=== PATIENT | female | born 1945 | race Caucasian/White ===

== ENCOUNTER → 2016-10-30 | Outpatient (CLI) | payer MEDICARE, BC ==
[~2016-10-30] MED LIST: REQUIP2 MG PO
== END ==
LOC: US 15:00 → CT 15:30
DX: R42 Dizziness and giddiness (principal); I65.23 Occlusion and stenosis of bilateral carotid arteries; W19.XXXA Unspecified fall, initial encounter
CPT/HCPCS: 70450; 93880

== ENCOUNTER → 2017-02-12 | Outpatient (CLI) | payer MEDICARE, BC | LOC: HEART 5 14:18 | DX: J44.9 Chronic obstructive pulmonary disease, unspecified (principal); Z87.891 Personal history of nicotine dependence ==

== ENCOUNTER 2020-09-13 09:00 | Emergency (ER) | payer MEDICARE, BC ==
[2020-09-13 10:27] LABS: HEMOGLOBIN 11.1 gm/dl (12.3-15.3); RED BLOOD COUNT 3.99 M/UL (4.00-5.10); WHITE BLOOD COUNT 7.9 K/UL (4.5-11.0)
[2020-09-13] MEDS ORDERED: ELIQUIS5 MG PO (13:21)
[2020-09-13] MEDS ORDERED: PREDNISONE20 MG PO (13:21)
== END 2020-09-13 14:31 | disposition home or self-care (01) ==
LOC: ER1 09:00
PROVIDERS: Physician Assistant
DX: R53.1 Weakness (principal); E27.40 Unspecified adrenocortical insufficiency; I48.91 Unspecified atrial fibrillation; L89.329 Pressure ulcer of left buttock, unspecified stage; L89.319 Pressure ulcer of right buttock, unspecified stage; E11.622 Type 2 diabetes mellitus with other skin ulcer; I87.8 Other specified disorders of veins; I13.0 Hypertensive heart and chronic kidney disease with heart failure and stage 1 through stage 4 chronic kidney disease, or unspecified chronic kidney disease; E11.22 Type 2 diabetes mellitus with diabetic chronic kidney disease; N18.9 Chronic kidney disease, unspecified; I50.9 Heart failure, unspecified; J44.9 Chronic obstructive pulmonary disease, unspecified; Z88.0 Allergy status to penicillin; Z88.5 Allergy status to narcotic agent; Z88.6 Allergy status to analgesic agent; Z79.899 Other long term (current) drug therapy; Z79.82 Long term (current) use of aspirin
CPT/HCPCS: 71045; 80053; 82024; 82533; 82550; 82553; 83874; 84439; 84443; 84484; 85025; 93005; 96374; 99285; J2930

== ENCOUNTER 2020-09-28 14:37 | Inpatient (IN) | payer MEDICARE, BC ==
[~2020-09-28] VITALS: Ht 152.4 cm; Wt 124.0 kg
[~2020-09-28 14:37] MED LIST changes: +ELIQUIS5 MG PO; +PREDNISONE20 MG PO
[2020-09-28 15:43] LABS: HEMOGLOBIN 10.2 gm/dl (12.3-15.3); RED BLOOD COUNT 3.8 M/UL (4.00-5.10); WHITE BLOOD COUNT 14.5 K/UL (4.5-11.0)
[2020-09-28] MEDS ORDERED: TUDORZA PRESS400 MCG INH (17:56)
[2020-09-28] MEDS ORDERED: NORVASC10 MG PO (17:57)
[2020-09-28] MEDS ORDERED: LEXAPRO20 MG PO (17:57)
[2020-09-28] MEDS ORDERED: LEVOTHYROXINE25 MC1 PO (17:58)
[2020-09-28] MEDS ORDERED: LASIX20 MG PO (17:58)
[2020-09-28] MEDS ORDERED: CILOSTAZOL50 MG PO (17:59)
[2020-09-28] MEDS ORDERED: TENORMIN 50 MG50 MG PO (17:59)
[2020-09-28] MEDS ORDERED: ZYRTEC10 M3 PO (18:00)
[2020-09-28] MEDS ORDERED: DAILY MULTIPLE1 EAC1 PO (18:00)
[2020-09-28] MEDS ORDERED: ASPIRIN CHEWABL81 MG PO (18:00)
[2020-09-28] MEDS ORDERED: VENTOLIN HFA 66.7 GM INH (18:05)
[2020-09-28] MEDS ORDERED: SYMBICORT 160-1 INHA INH (18:05)
[2020-09-29 03:03] LABS: HEMOGLOBIN 9.6 gm/dl (12.3-15.3); RED BLOOD COUNT 3.56 M/UL (4.00-5.10); WHITE BLOOD COUNT 12.7 K/UL (4.5-11.0)
[2020-09-30 02:22] LABS: HEMOGLOBIN 9.3 gm/dl (12.3-15.3); RED BLOOD COUNT 3.43 M/UL (4.00-5.10); WHITE BLOOD COUNT 12.9 K/UL (4.5-11.0)
[2020-10-01 02:42] LABS: HEMOGLOBIN 9.3 gm/dl (12.3-15.3); RED BLOOD COUNT 3.59 M/UL (4.00-5.10); WHITE BLOOD COUNT 11.7 K/UL (4.5-11.0)
[2020-10-02 02:20] LABS: HEMOGLOBIN 9.7 gm/dl (12.3-15.3); RED BLOOD COUNT 3.59 M/UL (4.00-5.10); WHITE BLOOD COUNT 12.4 K/UL (4.5-11.0)
[2020-10-03 03:00] LABS: HEMOGLOBIN 9.7 gm/dl (12.3-15.3); RED BLOOD COUNT 3.55 M/UL (4.00-5.10); WHITE BLOOD COUNT 13.9 K/UL (4.5-11.0)
[2020-10-04 03:39] LABS: HEMOGLOBIN 9.6 gm/dl (12.3-15.3); RED BLOOD COUNT 3.53 M/UL (4.00-5.10); WHITE BLOOD COUNT 12.1 K/UL (4.5-11.0)
[2020-10-05 02:33] LABS: HEMOGLOBIN 10.1 gm/dl (12.3-15.3); RED BLOOD COUNT 3.53 M/UL (4.00-5.10); WHITE BLOOD COUNT 12.6 K/UL (4.5-11.0)
[2020-10-05] MEDS ORDERED: BUMETANIDE1 MG PO (11:48)
[2020-10-05] MEDS ORDERED: ELIQUIS 5 MG TAB5 MG PO (11:48)
--- NOTE | 2020-10-05 15:49 | NUR ---
FAMILY FRIEND STATES NO ONE IS ABLE TO TAKE OLD BED DOWN FOR HOSPITAL BED TO BE SET UP TODAY, IT CAN BE DONE IN AM. DIGITAL STRATEGY DIRECTOR STATES PT CANNOT BE DISCHARGED UNTIL HOSPITAL BED SET UP CAUSE PT IS UNABLE TO SLEEP WITH HEAD NOT ELEVATED R/T BREATHING AND UNABLE TO GET OUT OF REGULAR BED. MD NOTIFIED AND STATES TO D/C DISCHARGE
[2020-10-06] MEDS ORDERED: LOPRESSOR 25 MG25 MG PO (11:03)
[2020-10-06] MEDS ORDERED: K-DUR TAB 10 M10 MEQ PO (11:16)
[2020-10-06] MEDS ORDERED: DOXYCYCLINE HY100 MG PO (11:19)
== END 2020-10-06 18:27 | disposition home or self-care (01) | DRG 291 ==
LOC: ER1 14:37 → M/S 16:49 → ZEROF 16:49 → PROG CARE 16:49 → M/S 20:35 → PROG CARE 09-29 16:03 → M/S 10-05 20:10
PROVIDERS: Family Medicine; Internal Medicine; ADMIT Internal Medicine
PROC: B24BZZZ Ultrasonography of Heart with Aorta (ICD-10-PCS; principal; 2020-09-29)
DX: I13.0 Hypertensive heart and chronic kidney disease with heart failure and stage 1 through stage 4 chronic kidney disease, or unspecified chronic kidney disease (principal); J96.21 Acute and chronic respiratory failure with hypoxia; I50.33 Acute on chronic diastolic (congestive) heart failure; Z68.43 Body mass index [BMI] 50.0-59.9, adult; I48.20 Chronic atrial fibrillation, unspecified; N17.9 Acute kidney failure, unspecified; E66.2 Morbid (severe) obesity with alveolar hypoventilation; I27.81 Cor pulmonale (chronic); N18.30 Chronic kidney disease, stage 3 unspecified; J44.9 Chronic obstructive pulmonary disease, unspecified; I25.10 Atherosclerotic heart disease of native coronary artery without angina pectoris; E03.9 Hypothyroidism, unspecified; D64.9 Anemia, unspecified; E87.6 Hypokalemia; Z20.822 Contact with and (suspected) exposure to COVID-19; R77.8 Other specified abnormalities of plasma proteins; Z82.49 Family history of ischemic heart disease and other diseases of the circulatory system; Z90.49 Acquired absence of other specified parts of digestive tract; Z85.42 Personal history of malignant neoplasm of other parts of uterus; Z90.710 Acquired absence of both cervix and uterus; Z80.1 Family history of malignant neoplasm of trachea, bronchus and lung; Z99.81 Dependence on supplemental oxygen; Z87.891 Personal history of nicotine dependence; Z88.5 Allergy status to narcotic agent; Z88.0 Allergy status to penicillin; Z88.8 Allergy status to other drugs, medicaments and biological substances; Z79.82 Long term (current) use of aspirin; Z79.890 Hormone replacement therapy; Z79.899 Other long term (current) drug therapy; G25.81 Restless legs syndrome; F32.9 Major depressive disorder, single episode, unspecified; L89.322 Pressure ulcer of left buttock, stage 2
CPT/HCPCS: ECHO; 36415; 36600; 71045; 80048; 80053; 82550; 82553; 82803; 82962; 83735; 83874; 83880; 84132; 84484; 85025; 85610; 85730; 87635; 93005; 93306; 94640; 94660; 94664; 94760; 96365; 96375; 96376; 97110-GP-CQ; 97116-GP-CQ; 97162; 97530-GP-CQ; 99285; A6212; J1120; J1205; J1644; J1650; J1940; U0002

== ENCOUNTER 2020-10-17 11:00 | Inpatient (IN) | payer MEDICARE, BC ==
[~2020-10-17] VITALS: Ht 152.4 cm; Wt 123.0 kg
[~2020-10-17 11:00] MED LIST changes: +ASPIRIN CHEWABL81 MG PO; +BUMETANIDE1 MG PO; +CILOSTAZOL50 MG PO; +DAILY MULTIPLE1 EAC1 PO; +DOXYCYCLINE HY100 MG PO; +ELIQUIS 5 MG TAB5 MG PO; +K-DUR TAB 10 M10 MEQ PO; +LASIX20 MG PO; +LEVOTHYROXINE25 MC1 PO; +LEXAPRO20 MG PO; +LOPRESSOR 25 MG25 MG PO; +NORVASC10 MG PO; +SYMBICORT 160-1 INHA INH; +TENORMIN 50 MG50 MG PO; +TUDORZA PRESS400 MCG INH; +VENTOLIN HFA 66.7 GM INH; +ZYRTEC10 M3 PO
[2020-10-17 11:29] LABS: HEMOGLOBIN 8.9 gm/dl (12.3-15.3)
[2020-10-17 11:33] LABS: RED BLOOD COUNT 3.3 M/UL (4.00-5.10); WHITE BLOOD COUNT 15.7 K/UL (4.5-11.0)
[2020-10-17 11:51] LABS: BUN/CREATININE RATIO 23 (0-10)
[2020-10-18 03:54] LABS: HEMOGLOBIN 8.7 gm/dl (12.3-15.3); RED BLOOD COUNT 3.23 M/UL (4.00-5.10); WHITE BLOOD COUNT 13.2 K/UL (4.5-11.0)
[2020-10-18 04:23] LABS: BUN/CREATININE RATIO 21 (0-10)
[2020-10-19 04:02] LABS: HEMOGLOBIN 8.1 gm/dl (12.3-15.3); RED BLOOD COUNT 2.97 M/UL (4.00-5.10); WHITE BLOOD COUNT 12.3 K/UL (4.5-11.0)
[2020-10-20 04:18] LABS: HEMOGLOBIN 7.7 gm/dl (12.3-15.3); RED BLOOD COUNT 2.86 M/UL (4.00-5.10); WHITE BLOOD COUNT 12.3 K/UL (4.5-11.0)
[2020-10-22 04:24] LABS: HEMOGLOBIN 7.4 gm/dl (12.3-15.3); RED BLOOD COUNT 2.76 M/UL (4.00-5.10); WHITE BLOOD COUNT 9.8 K/UL (4.5-11.0)
[2020-10-24 05:58] LABS: HEMOGLOBIN 7.5 gm/dl (12.3-15.3); RED BLOOD COUNT 2.78 M/UL (4.00-5.10); WHITE BLOOD COUNT 11.5 K/UL (4.5-11.0)
[2020-10-26 03:29] LABS: HEMOGLOBIN 7.5 gm/dl (12.3-15.3); RED BLOOD COUNT 2.77 M/UL (4.00-5.10); WHITE BLOOD COUNT 12.4 K/UL (4.5-11.0)
[2020-10-27 03:16] LABS: HEMOGLOBIN 7.3 gm/dl (12.3-15.3); RED BLOOD COUNT 2.67 M/UL (4.00-5.10); WHITE BLOOD COUNT 11.1 K/UL (4.5-11.0)
[2020-10-27] MEDS ORDERED: LISINOPRIL2.5 MG PO (18:24)
[2020-10-28 09:00] LABS: HEMOGLOBIN 7.5 gm/dl (12.3-15.3); RED BLOOD COUNT 2.72 M/UL (4.00-5.10); WHITE BLOOD COUNT 11.5 K/UL (4.5-11.0)
[2020-11-01] MEDS ORDERED: K-DUR TAB 10 M10 MEQ PO (10:54)
== END 2020-11-01 13:49 | disposition home health service (06) | DRG 291 ==
LOC: ER1 11:00 → MED SURG 4 15:05 → CDU 15:05 → MED SURG 4 18:15
PROVIDERS: Internal Medicine; Internal Medicine Infectious Disease; Physician Assistant; Student in an Organized Health Care Education/Training Program; ADMIT Internal Medicine
DX: I50.810 Right heart failure, unspecified (principal); J96.21 Acute and chronic respiratory failure with hypoxia; J44.1 Chronic obstructive pulmonary disease with (acute) exacerbation; E66.2 Morbid (severe) obesity with alveolar hypoventilation; Z20.822 Contact with and (suspected) exposure to COVID-19; Z68.43 Body mass index [BMI] 50.0-59.9, adult; N17.9 Acute kidney failure, unspecified; I48.20 Chronic atrial fibrillation, unspecified; E03.9 Hypothyroidism, unspecified; I27.29 Other secondary pulmonary hypertension; D50.9 Iron deficiency anemia, unspecified; E87.6 Hypokalemia; L89.322 Pressure ulcer of left buttock, stage 2; I51.7 Cardiomegaly; E83.42 Hypomagnesemia; E87.70 Fluid overload, unspecified; I27.81 Cor pulmonale (chronic); Z87.891 Personal history of nicotine dependence; Z85.42 Personal history of malignant neoplasm of other parts of uterus; Z79.82 Long term (current) use of aspirin; Z79.890 Hormone replacement therapy; Z79.01 Long term (current) use of anticoagulants; Z79.899 Other long term (current) drug therapy; Z99.81 Dependence on supplemental oxygen; Z88.6 Allergy status to analgesic agent; Z88.5 Allergy status to narcotic agent; Z88.0 Allergy status to penicillin; Z82.49 Family history of ischemic heart disease and other diseases of the circulatory system; Z80.1 Family history of malignant neoplasm of trachea, bronchus and lung; Z90.49 Acquired absence of other specified parts of digestive tract
CPT/HCPCS: 0240U; 36415; 36600; 71045; 71046; 80048; 80053; 80202; 81001; 82550; 82553; 82607; 82728; 82746; 82803; 83540; 83550; 83605; 83735; 83874; 83880; 84100; 84132; 84443; 84484; 85025; 85027; 85379; 85610; 85730; 87040; 87278; 87635; 93005; 94640; 94660; 94664; 94760; 96365; 96366; 96368; 96375; 97116; 97116-GP-CQ; 97162; 97166; 97530; 97530-GP-CQ; 97535; 99285; J0456; J0692; J0696; J1120; J1205; J1756; J1940; J1956; J3370; J3475; J7030; J7050; J7070; P9047

== ENCOUNTER → 2020-11-02 | Outpatient (CLI) | payer MEDICARE, BC ==
[~2020-11-02] MED LIST changes: +AMLODIPINE BESY10 MG PO; +FUROSEMIDE20 MG PO; +GLIMEPIRIDE1 MG PO; +LISINOPRIL2.5 MG PO; +PREDNISONE 20 M20 MG PO; +ZAROXOLYN/DIULO5 MG PO
== END ==
LOC: LBRF 09:18
PROVIDERS: Family Medicine
DX: E87.6 Hypokalemia (principal); E83.42 Hypomagnesemia
CPT/HCPCS: 80048; 83735

== ENCOUNTER 2021-01-03 16:06 | Inpatient (IN) | payer MEDICARE, BC ==
[~2021-01-03] VITALS: Ht 152.4 cm; Wt 132.6 kg
[~2021-01-03 16:06] MED LIST changes: -AMLODIPINE BESY10 MG PO; -FUROSEMIDE20 MG PO; -GLIMEPIRIDE1 MG PO; -PREDNISONE 20 M20 MG PO; -ZAROXOLYN/DIULO5 MG PO
[2021-01-03 17:17] LABS: HEMOGLOBIN 9.5 gm/dl (12.3-15.3); RED BLOOD COUNT 3.72 M/UL (4.00-5.10); WHITE BLOOD COUNT 10.8 K/UL (4.5-11.0)
[2021-01-03] MEDS ORDERED: FUROSEMIDE20 MG PO (19:28)
[2021-01-03] MEDS ORDERED: TENORMIN 50 MG50 MG PO (19:29)
[2021-01-03] MEDS ORDERED: AMLODIPINE BESY10 MG PO (19:44)
[2021-01-03] MEDS ORDERED: GLIMEPIRIDE1 MG PO (19:45)
[2021-01-03] MEDS ORDERED: ELIQUIS5 MG PO (19:58)
[2021-01-04 05:41] LABS: HEMOGLOBIN 8.7 gm/dl (12.3-15.3); RED BLOOD COUNT 3.39 M/UL (4.00-5.10); WHITE BLOOD COUNT 9.9 K/UL (4.5-11.0)
[2021-01-04 06:09] LABS: BUN/CREATININE RATIO 17 (0-10)
[2021-01-05 04:54] LABS: HEMOGLOBIN 8.5 gm/dl (12.3-15.3); RED BLOOD COUNT 3.39 M/UL (4.00-5.10); WHITE BLOOD COUNT 8.3 K/UL (4.5-11.0)
[2021-01-06 02:44] LABS: HEMOGLOBIN 8.3 gm/dl (12.3-15.3); RED BLOOD COUNT 3.32 M/UL (4.00-5.10)
[2021-01-06 02:46] LABS: WHITE BLOOD COUNT 13.3 K/UL (4.5-11.0)
[2021-01-07 03:02] LABS: RED BLOOD COUNT 3.29 M/UL (4.00-5.10); WHITE BLOOD COUNT 10.6 K/UL (4.5-11.0)
[2021-01-07] MEDS ORDERED: BUMETANIDE1 MG PO (11:37)
[2021-01-07] MEDS ORDERED: ZAROXOLYN/DIULO5 MG PO (11:37)
[2021-01-08 09:36] LABS: RED BLOOD COUNT 3.59 M/UL (4.00-5.10); WHITE BLOOD COUNT 9.7 K/UL (4.5-11.0)
[2021-01-10 05:26] LABS: HEMOGLOBIN 9.1 gm/dl (12.3-15.3); RED BLOOD COUNT 3.68 M/UL (4.00-5.10); WHITE BLOOD COUNT 10.2 K/UL (4.5-11.0)
[2021-01-12 02:29] LABS: HEMOGLOBIN 8.5 gm/dl (12.3-15.3); RED BLOOD COUNT 3.47 M/UL (4.00-5.10); WHITE BLOOD COUNT 9.3 K/UL (4.5-11.0)
[2021-01-17 03:07] LABS: BUN/CREATININE RATIO 59 (0-10)
[2021-01-18 03:16] LABS: HEMOGLOBIN 8.9 gm/dl (12.3-15.3); RED BLOOD COUNT 3.61 M/UL (4.00-5.10)
[2021-01-20] MEDS ORDERED: PREDNISONE 20 M20 MG PO (11:17)
== END 2021-01-20 12:56 | disposition home or self-care (01) | DRG 291 ==
LOC: ER1 16:06 → CDU 19:05 → PROG CARE 19:05
PROVIDERS: Internal Medicine; Internal Medicine Infectious Disease; Physician Assistant Medical; ADMIT Internal Medicine
DX: I11.0 Hypertensive heart disease with heart failure (principal); J96.21 Acute and chronic respiratory failure with hypoxia; J44.1 Chronic obstructive pulmonary disease with (acute) exacerbation; E66.2 Morbid (severe) obesity with alveolar hypoventilation; E87.1 Hypo-osmolality and hyponatremia; Z68.43 Body mass index [BMI] 50.0-59.9, adult; Z20.822 Contact with and (suspected) exposure to COVID-19; I50.33 Acute on chronic diastolic (congestive) heart failure; R04.0 Epistaxis; E03.9 Hypothyroidism, unspecified; R53.81 Other malaise; F41.9 Anxiety disorder, unspecified; E87.6 Hypokalemia; I48.0 Paroxysmal atrial fibrillation; I73.9 Peripheral vascular disease, unspecified; E11.9 Type 2 diabetes mellitus without complications; Z79.4 Long term (current) use of insulin; Z86.16 Personal history of COVID-19; Z85.42 Personal history of malignant neoplasm of other parts of uterus; Z90.49 Acquired absence of other specified parts of digestive tract; Z79.01 Long term (current) use of anticoagulants; Z79.82 Long term (current) use of aspirin; Z87.01 Personal history of pneumonia (recurrent); Z99.81 Dependence on supplemental oxygen; Z98.51 Tubal ligation status; Z88.6 Allergy status to analgesic agent; Z88.5 Allergy status to narcotic agent; Z88.8 Allergy status to other drugs, medicaments and biological substances; Z87.891 Personal history of nicotine dependence; Z82.49 Family history of ischemic heart disease and other diseases of the circulatory system; Z80.1 Family history of malignant neoplasm of trachea, bronchus and lung
CPT/HCPCS: 36415; 36600; 71045; 71046; 71250; 80048; 80053; 80202; 82550; 82553; 82803; 82962; 83605; 83735; 83874; 83880; 84100; 84132; 84484; 85025; 85027; 85379; 85610; 86140; 87040; 87081; 93005; 93970; 94640; 94664; 94760; 96374; 96375; 97116; 97116-GP-CQ; 97162; 97530; 97530-GP-CQ; 99285; J0696; J1205; J1940; J2185; J2920; J3370; J3475; J7030; J7070; U0002

== ENCOUNTER 2021-04-08 09:59 | Inpatient (IN) | payer MEDICARE, BC ==
[~2021-04-08] VITALS: Ht 152.4 cm; Wt 127.1 kg
[~2021-04-08 09:59] MED LIST changes: +AMLODIPINE BESY10 MG PO; -ASPIRIN CHEWABL81 MG PO; +FUROSEMIDE20 MG PO; +GLIMEPIRIDE1 MG PO; +PREDNISONE 20 M20 MG PO; -REQUIP2 MG PO; +ZAROXOLYN/DIULO5 MG PO; -ZYRTEC10 M3 PO
[2021-04-08 10:27] LABS: RED BLOOD COUNT 3.96 M/UL (4.00-5.10); WHITE BLOOD COUNT 8.4 K/UL (4.5-11.0)
[2021-04-08 10:58] LABS: BUN/CREATININE RATIO 27 (0-10)
[2021-04-08] MEDS ORDERED: COZAAR 25MG TAB25 MG PO (12:28)
[2021-04-08] MEDS ORDERED: KLOR-CON 1010 MEQ PO (12:39)
[2021-04-08] MEDS ORDERED: SYMBICORT 160-1 INHA INH (12:39)
[2021-04-08] MEDS ORDERED: LOPRESSOR 25 MG25 MG PO (12:40)
[2021-04-08] MEDS ORDERED: TYLENOL EXTRA500 MG PO (13:20)
[2021-04-08] MEDS ORDERED: METAMUCIL POWD822 GM PO (13:23)
[2021-04-08] MEDS ORDERED: ROPINIROLE HCL2 MG PO (14:06)
[2021-04-08] MEDS ORDERED: ASPIRIN EC81 MG PO (18:00)
[2021-04-08] MEDS ORDERED: ZYRTEC10 MG PO (18:00)
[2021-04-09 07:48] LABS: HEMOGLOBIN 9.8 gm/dl (12.3-15.3); RED BLOOD COUNT 4.2 M/UL (4.00-5.10); WHITE BLOOD COUNT 8.2 K/UL (4.5-11.0)
[2021-04-11 06:21] LABS: HEMOGLOBIN 8.9 gm/dl (12.3-15.3); RED BLOOD COUNT 3.79 M/UL (4.00-5.10)
[2021-04-11 06:34] LABS: WHITE BLOOD COUNT 10.7 K/UL (4.5-11.0)
[2021-04-12 07:03] LABS: HEMOGLOBIN 9.4 gm/dl (12.3-15.3); RED BLOOD COUNT 3.76 M/UL (4.00-5.10); WHITE BLOOD COUNT 8.6 K/UL (4.5-11.0)
[2021-04-13 04:30] LABS: HEMOGLOBIN 8.9 gm/dl (12.3-15.3); RED BLOOD COUNT 3.69 M/UL (4.00-5.10); WHITE BLOOD COUNT 8.7 K/UL (4.5-11.0)
== END 2021-04-14 14:39 | disposition home or self-care (01) | DRG 291 ==
LOC: ER1 09:59 → CDU 12:13 → M/S 12:13
PROVIDERS: Emergency Medicine; Internal Medicine; Physician Assistant; Physician Assistant Medical; ADMIT Internal Medicine Infectious Disease
DX: I13.0 Hypertensive heart and chronic kidney disease with heart failure and stage 1 through stage 4 chronic kidney disease, or unspecified chronic kidney disease (principal); I50.33 Acute on chronic diastolic (congestive) heart failure; I47.2 Ventricular tachycardia; E66.2 Morbid (severe) obesity with alveolar hypoventilation; J96.11 Chronic respiratory failure with hypoxia; Z20.822 Contact with and (suspected) exposure to COVID-19; N18.30 Chronic kidney disease, stage 3 unspecified; I48.0 Paroxysmal atrial fibrillation; J44.9 Chronic obstructive pulmonary disease, unspecified; D63.1 Anemia in chronic kidney disease; E03.9 Hypothyroidism, unspecified; I73.9 Peripheral vascular disease, unspecified; F41.9 Anxiety disorder, unspecified; Z86.16 Personal history of COVID-19; Z98.51 Tubal ligation status; Z90.710 Acquired absence of both cervix and uterus; Z90.49 Acquired absence of other specified parts of digestive tract; Z90.89 Acquired absence of other organs; Z98.890 Other specified postprocedural states; Z85.42 Personal history of malignant neoplasm of other parts of uterus; Z88.0 Allergy status to penicillin; Z88.8 Allergy status to other drugs, medicaments and biological substances; Z88.5 Allergy status to narcotic agent; Z79.82 Long term (current) use of aspirin; Z79.890 Hormone replacement therapy; Z79.899 Other long term (current) drug therapy; Z82.49 Family history of ischemic heart disease and other diseases of the circulatory system; Z80.1 Family history of malignant neoplasm of trachea, bronchus and lung
CPT/HCPCS: 36415; 51702; 71045; 80048; 80053; 81001; 82550; 82553; 82803; 83605; 83735; 83874; 83880; 84484; 85025; 85027; 87040; 93005; 94640; 94664; 94760; 96374; 96375; 97116-GP-CQ; 97162; 97530; 97530-GP-CQ; 99285; J0696; J1100; J1205; J1650; J1940; P9047; U0002

== ENCOUNTER 2021-07-19 12:44 | Inpatient (IN) | payer MEDICARE, BC ==
[~2021-07-19] VITALS: Ht 152.4 cm; Wt 129.4 kg
[~2021-07-19 12:44] MED LIST changes: +ASPIRIN EC81 MG PO; +COZAAR 25MG TAB25 MG PO; +KLOR-CON 1010 MEQ PO; -LEVOTHYROXINE25 MC1 PO; +LEVOTHYROXINE50 MCG PO; +METAMUCIL POWD822 GM PO; +ROPINIROLE HCL2 MG PO; +TYLENOL EXTRA500 MG PO; +ZYRTEC10 MG PO
[2021-07-19 13:18] LABS: HEMOGLOBIN 11.6 gm/dl (12.3-15.3); RED BLOOD COUNT 4.38 M/UL (4.00-5.10); WHITE BLOOD COUNT 7.7 K/UL (4.5-11.0)
[2021-07-19 13:57] LABS: BORDETELLA PARAPERTUSSIS Not Detected (Not Detectd); BORDETELLA PERTUSSIS Not Detected (Not Detectd); CHLAMYDIA PNEUMONIAE Not Detected (Not Detectd); CORONAVIRUS HKU1 Not Detected (Not Detectd); CORONAVIRUS NL63 Not Detected (Not Detectd); CORONAVIRUS OC43 Not Detected (Not Detectd); CORONOAVIRUS 229E Not Detected (Not Detectd); HUMAN METAPNEUMOVIRUS Not Detected (Not Detectd); HUMAN RHINOVIRUS/ENTEROVIRUS Not Detected (Not Detectd); INFLUENZA A Not Detected (Not Detectd); INFLUENZA B Not Detected (Not Detectd); MYCOPLASMA PNEUMONIAE Not Detected (Not Detectd); PARAINFLUENZA VIRUS 1 Not Detected (Not Detectd); PARAINFLUENZA VIRUS 2 Not Detected (Not Detectd); PARAINFLUENZA VIRUS 3 Not Detected (Not Detectd); PARAINFLUENZA VIRUS 4 Not Detected (Not Detectd); RESPIRATORY SYNCYTIAL VIRUS Not Detected (Not Detectd)
[2021-07-19 15:43] LABS: SARS-CoV-2 NOT DETECTED (Not Detectd)
[2021-07-19] MEDS ORDERED: BUMETANIDE1 MG PO (16:31)
[2021-07-19] MEDS ORDERED: AMLODIPINE BESY10 MG PO (16:32)
[2021-07-19] MEDS ORDERED: CILOSTAZOL50 MG PO (16:32)
[2021-07-19] MEDS ORDERED: ELIQUIS5 MG PO (16:32)
[2021-07-20 06:47] LABS: HEMOGLOBIN 10.8 gm/dl (12.3-15.3); RED BLOOD COUNT 4.19 M/UL (4.00-5.10)
[2021-07-20 06:50] LABS: WHITE BLOOD COUNT 4.1 K/UL (4.5-11.0)
[2021-07-23 07:47] LABS: HEMOGLOBIN 9.7 gm/dl (12.3-15.3); RED BLOOD COUNT 3.77 M/UL (4.00-5.10); WHITE BLOOD COUNT 8.9 K/UL (4.5-11.0)
[2021-07-24 06:54] LABS: HEMOGLOBIN 10.1 gm/dl (12.3-15.3); RED BLOOD COUNT 3.87 M/UL (4.00-5.10)
[2021-07-25 06:19] LABS: HEMOGLOBIN 9.4 gm/dl (12.3-15.3); RED BLOOD COUNT 3.6 M/UL (4.00-5.10); WHITE BLOOD COUNT 6.4 K/UL (4.5-11.0)
[2021-07-26 07:08] LABS: HEMOGLOBIN 9.9 gm/dl (12.3-15.3); RED BLOOD COUNT 3.82 M/UL (4.00-5.10); WHITE BLOOD COUNT 6.1 K/UL (4.5-11.0)
[2021-07-27 04:09] LABS: HEMOGLOBIN 9.5 gm/dl (12.3-15.3); RED BLOOD COUNT 3.62 M/UL (4.00-5.10); WHITE BLOOD COUNT 5.5 K/UL (4.5-11.0)
[2021-07-28 06:01] LABS: HEMOGLOBIN 9.8 gm/dl (12.3-15.3); RED BLOOD COUNT 3.8 M/UL (4.00-5.10); WHITE BLOOD COUNT 6.2 K/UL (4.5-11.0)
[2021-07-29 07:02] LABS: HEMOGLOBIN 9.6 gm/dl (12.3-15.3); RED BLOOD COUNT 3.64 M/UL (4.00-5.10); WHITE BLOOD COUNT 7.2 K/UL (4.5-11.0)
[2021-07-30 07:42] LABS: HEMOGLOBIN 9.4 gm/dl (12.3-15.3); RED BLOOD COUNT 3.74 M/UL (4.00-5.10)
[2021-07-31 08:13] LABS: HEMOGLOBIN 9.9 gm/dl (12.3-15.3); RED BLOOD COUNT 3.9 M/UL (4.00-5.10); WHITE BLOOD COUNT 7.1 K/UL (4.5-11.0)
[2021-08-01 06:49] LABS: HEMOGLOBIN 10.2 gm/dl (12.3-15.3); RED BLOOD COUNT 3.91 M/UL (4.00-5.10)
[2021-08-01 06:50] LABS: WHITE BLOOD COUNT 9.3 K/UL (4.5-11.0)
[2021-08-01] MEDS ORDERED: DIGOXIN250 MCG PO (10:17)
[2021-08-01] MEDS ORDERED: LEVOFLOXACIN500 MG PO (10:32)
[2021-08-02 06:57] LABS: HEMOGLOBIN 9.6 gm/dl (12.3-15.3); RED BLOOD COUNT 3.79 M/UL (4.00-5.10); WHITE BLOOD COUNT 9.2 K/UL (4.5-11.0)
--- NOTE | 2021-08-03 02:54 | NUR ---
patient pulse ox cord was paced on her ear and is currently reading 99% on 5l with cpap from home. turned patient down to 4 l with cpap from home and patient is currently sating 98%. patient has no complaints of soa or any other complaints at this time. call light in reach bed in low position and siderails elevated.
[2021-08-04] MEDS ORDERED: BUMETANIDE1 MG PO (09:30)
[2021-08-04] MEDS ORDERED: IPRAT-ALBUT 0.5-3 ML NEB (09:30)
[2021-08-04] MEDS ORDERED: KLOR-CON 1010 MEQ PO (09:30)
[2021-08-04] MEDS ORDERED: LOPRESSOR 50 MG50 MG PO (09:30)
[2021-08-04] MEDS ORDERED: DIGOXIN125 MCG PO (09:30)
== END 2021-08-04 13:33 | DRG 291 ==
LOC: ER1 12:44 → CDU 15:45 → M/S 15:45
PROVIDERS: Internal Medicine; Internal Medicine Cardiovascular Disease; Physician Assistant; Physician Assistant Medical; ADMIT Internal Medicine
DX: I13.0 Hypertensive heart and chronic kidney disease with heart failure and stage 1 through stage 4 chronic kidney disease, or unspecified chronic kidney disease (principal); I50.33 Acute on chronic diastolic (congestive) heart failure; J96.21 Acute and chronic respiratory failure with hypoxia; J18.9 Pneumonia, unspecified organism; N17.9 Acute kidney failure, unspecified; J44.0 Chronic obstructive pulmonary disease with (acute) lower respiratory infection; Z68.44 Body mass index [BMI] 60.0-69.9, adult; Z20.822 Contact with and (suspected) exposure to COVID-19; I48.0 Paroxysmal atrial fibrillation; N18.30 Chronic kidney disease, stage 3 unspecified; D64.9 Anemia, unspecified; G47.33 Obstructive sleep apnea (adult) (pediatric); I27.20 Pulmonary hypertension, unspecified; I27.81 Cor pulmonale (chronic); E66.01 Morbid (severe) obesity due to excess calories; E11.649 Type 2 diabetes mellitus with hypoglycemia without coma; E87.6 Hypokalemia; E83.42 Hypomagnesemia; R53.81 Other malaise; E03.9 Hypothyroidism, unspecified; I50.810 Right heart failure, unspecified; F41.9 Anxiety disorder, unspecified; Z99.81 Dependence on supplemental oxygen; Z79.01 Long term (current) use of anticoagulants; Z79.899 Other long term (current) drug therapy; Z85.42 Personal history of malignant neoplasm of other parts of uterus; Z90.49 Acquired absence of other specified parts of digestive tract; Z98.51 Tubal ligation status; Z90.710 Acquired absence of both cervix and uterus; Z90.89 Acquired absence of other organs; Z88.0 Allergy status to penicillin; Z88.5 Allergy status to narcotic agent; Z88.8 Allergy status to other drugs, medicaments and biological substances; Z79.82 Long term (current) use of aspirin; Z82.49 Family history of ischemic heart disease and other diseases of the circulatory system; Z80.1 Family history of malignant neoplasm of trachea, bronchus and lung; Z98.890 Other specified postprocedural states; Z87.891 Personal history of nicotine dependence
CPT/HCPCS: ECHO; 36415; 36600; 51702; 71045; 71046; 80048; 80053; 80162; 82550; 82553; 82803; 82962; 83036; 83605; 83735; 83874; 83880; 84132; 84484; 85025; 85027; 85610; 87040; 87633; 93005; 93306; 93971; 94640; 94660; 94664; 94760; 97110; 97161; 97166; 97530-GP-CQ; 97535; 99285; J1650; J1940; J2930; J3475; Q9957; U0002

== ENCOUNTER 2021-08-23 14:53 | Inpatient (IN) | payer MEDICARE, BC ==
[~2021-08-23] VITALS: Ht 152.4 cm; Wt 109.6 kg
[~2021-08-23 14:53] MED LIST changes: +DIGOXIN125 MCG PO; +DIGOXIN250 MCG PO; +IPRAT-ALBUT 0.5-3 ML NEB; +LEVOFLOXACIN500 MG PO; +LOPRESSOR 50 MG50 MG PO
[2021-08-23 16:04] LABS: RED BLOOD COUNT 4.45 M/UL (4.00-5.10); WHITE BLOOD COUNT 9.3 K/UL (4.5-11.0)
[2021-08-23 16:37] LABS: BUN/CREATININE RATIO 29 (0-10)
[2021-08-24 03:16] LABS: HEMOGLOBIN 11.8 gm/dl (12.3-15.3); RED BLOOD COUNT 4.41 M/UL (4.00-5.10); WHITE BLOOD COUNT 10.6 K/UL (4.5-11.0)
[2021-08-24 16:07] LABS: ACINETOBACTER BAUMANNII Not Detected (Negative); CANDIDA ALBICANS Not Detected (Negative); CANDIDA KRUSEI Not Detected (Negative); CANDIDA TROPICALIS Not Detected (Negative); ENTEROCOCCUS Not Detected (Negative); ESCHERICHIA COLI Not Detected (Negative); HAEMOPHILUS INFLUENZAE Not Detected (Negative); KLEBSIELLA OXYTOCA Not Detected (Negative); KLEBSIELLA PNEUMONIAE Not Detected (Negative); KPC-CARBAPENEM-RESISTANCE GENE Not Detected (Negative); PROTEUS Not Detected (Negative); PSEUDOMONAS AERUGINOSA Not Detected (Negative); SERRATIA MARCESANS Not Detected (Negative); STAPHYLOCOCCUS AUREUS Not Detected (Negative); STREP AGALACTIAE (GROUP B) Not Detected (Negative); STREP PYOGENES (GROUP A) Not Detected (Negative); STREPTOCOCCUS Not Detected (Negative); vanA/B (VANCOMYCIN RESIST GENE Not Detected (Negative)
[2021-08-24 18:18] LABS: STAPHYLOCOCCUS DETECTED (Negative); mecA (METHICILLIN RESIST GENE DETECTED (Negative)
[2021-08-29] MEDS ORDERED: SYMBICORT 160-1 INHA INH (11:20)
[2021-08-29] MEDS ORDERED: ACETAMINOPHEN325 MG PO (11:20)
[2021-08-29] MEDS ORDERED: LOPRESSOR 25 MG25 MG PO (11:20)
[2021-08-29] MEDS ORDERED: ISOSORBIDE MONO30 MG PO (11:20)
[2021-08-29] MEDS ORDERED: ACETAZOLAMIDE250 MG PO (11:20)
[2021-08-29] MEDS ORDERED: AMLODIPINE BESYL5 MG PO (11:20)
[2021-08-29] MEDS ORDERED: COZAAR 25MG TAB25 MG PO (11:20)
[2021-08-29] MEDS ORDERED: KLOR-CON M2020 MEQ PO (11:20)
[2021-08-29] MEDS ORDERED: HYDROCODON-ACE1 EAC4 PO (11:26)
[2021-08-29] MEDS ORDERED: AMLODIPINE BES2.5 MG PO (11:38)
== END 2021-08-29 19:27 | DRG 291 ==
LOC: ER1 14:53 → CDU 17:07 → MED SURG 4 17:07 → CDU 17:34 → PROG CARE 20:52 → MED SURG 4 08-27 18:01
PROVIDERS: Physician Assistant; ADMIT Internal Medicine Infectious Disease
DX: I13.0 Hypertensive heart and chronic kidney disease with heart failure and stage 1 through stage 4 chronic kidney disease, or unspecified chronic kidney disease (principal); I50.33 Acute on chronic diastolic (congestive) heart failure; J96.21 Acute and chronic respiratory failure with hypoxia; E66.2 Morbid (severe) obesity with alveolar hypoventilation; Z68.42 Body mass index [BMI] 45.0-49.9, adult; Z20.822 Contact with and (suspected) exposure to COVID-19; J44.9 Chronic obstructive pulmonary disease, unspecified; I27.20 Pulmonary hypertension, unspecified; D63.1 Anemia in chronic kidney disease; G47.33 Obstructive sleep apnea (adult) (pediatric); F17.200 Nicotine dependence, unspecified, uncomplicated; E03.9 Hypothyroidism, unspecified; E87.6 Hypokalemia; I48.0 Paroxysmal atrial fibrillation; R04.0 Epistaxis; R00.1 Bradycardia, unspecified; R53.81 Other malaise; M16.11 Unilateral primary osteoarthritis, right hip; N18.30 Chronic kidney disease, stage 3 unspecified; Z85.44 Personal history of malignant neoplasm of other female genital organs; Z90.49 Acquired absence of other specified parts of digestive tract; Z90.710 Acquired absence of both cervix and uterus; Z79.01 Long term (current) use of anticoagulants; Z90.89 Acquired absence of other organs; Z88.0 Allergy status to penicillin; Z88.5 Allergy status to narcotic agent; Z88.8 Allergy status to other drugs, medicaments and biological substances; Z82.49 Family history of ischemic heart disease and other diseases of the circulatory system; Z99.81 Dependence on supplemental oxygen; Z79.82 Long term (current) use of aspirin; Z79.899 Other long term (current) drug therapy
CPT/HCPCS: 36415; 36600; 51702; 71045; 80048; 80053; 81001; 82550; 82553; 82803; 82962; 83605; 83735; 83874; 83880; 84484; 85025; 87040; 87077; 87086; 87150; 87186; 93005; 94640; 94660; 94760; 97161; 97530; 97530-GP-CQ; 99285; U0002